=== PATIENT | female | born 1980 | race Caucasian/White ===

== ENCOUNTER 2021-01-25 09:31 | Outpatient (CLI) | payer OTHER, SELFPAY ==
--- NOTE | 2021-01-25 10:21 | ECHO_ITS ---
Patient Info Name: Sarahi Leon Age: 40 years : 1980 Gender: Female Ht: 64 in Wt: 140 lbs BSA: 1.70 m2 HR: 77 bpm BP: 130 / 90 mmHg Heart Rhythm: Sinus Rhythm Exam Date: 01/25/2021 10:44 AM Exam Location: [facility] Pulmonary Patient Status: Outpatient Admit Date: 01/25/2021 Staff Ordering Physician: Clair Ortiz Guard Immigration: Noelle Stern RDCS Attending Provider: Clair Ortiz Exam Type: CA echo doppler color flow Study Info Indications - CONGENITAL INSUFFICIENCY OF AORTIC VALVE Complete two-dimensional, color flow and Doppler transthoracic echocardiogram is performed. Summary 1. Complete two-dimensional, color flow and Doppler transthoracic echocardiogram is performed. 2. Left ventricular chamber dimension is normal. 3. Left ventricular systolic function is normal, estimated at 60-65%. 4. The left ventricular diastolic function is grade I diastolic dysfunction. 5. E/e' 7 is not elevated. 6. The aortic valve is bicuspid. 7. No pulmonary hypertension, estimated pulmonary arterial systolic pressure is 26 mmHg. Left Ventricle E/e' 7 is not elevated. Left ventricular chamber dimension is normal. Left ventricular systolic function is normal, estimated at 60-65%. The left ventricular diastolic function is grade I diastolic dysfunction. Right Ventricle Right ventricular chamber dimension is normal. Right ventricular systolic function is normal. Left Atria Left atrial chamber dimension is normal. Right Atria Right atrial chamber dimension is normal. Aortic Valve The aortic valve is bicuspid. There is no aortic valve stenosis. There is no aortic valve regurgitation. Pulmonic Valve There is no pulmonic regurgitation. Mitral Valve There is no mitral valve stenosis. There is no mitral valve regurgitation. Tricuspid Valve There is no tricuspid valve regurgitation. No pulmonary hypertension, estimated pulmonary arterial systolic pressure is 26 mmHg. Pericardium/Pleural There is no pericardial effusion. Inferior Vena Cava Normal inferior vena cava with >50% collapse upon inspiration consistent with normal right atrial pressure, 5 mmHg. Aorta The aortic root size at the sinus of Valsalva is normal. Left Ventricular Outflow Tract Name Value Normal LVOT 2D LVOT Diameter 1.9 cm LVOT Doppler LVOT Peak Gradient 4 mmHg LVOT Mean Gradient 2 mmHg LVOT VTI 23 cm LVOT VTI/AV VTI Ratio 0.5 LVOT Stroke Volume 66 ml LVOT CO 4.7 l/min LVOT CI 2.8 l/min/m2 Pulmonic Valve Name Value Normal RVOT Doppler RVOT Peak Gradient 3 mmHg PV Doppler
== END 2021-01-25 09:32 | disposition home or self-care (01) ==
LOC: ANHCARD 09:33
PROVIDERS: PCP Internal Medicine; Visit Provider Clinical Nurse Specialist
DX: Q23.1 Congenital insufficiency of aortic valve (principal)
CPT/HCPCS: 93306

== ENCOUNTER 2021-02-15 13:15 | Outpatient (RCR) | payer OTHER, SELFPAY ==
--- NOTE | 2021-02-05 10:14 | PTOPEVAL ---
PHYSICAL THERAPY EVALUATION AND PLAN OF CARE 02-05-21 Thank you for referring Sarahi Leon to [facility], for the diagnosis of mononeuropathy. She has issues with her R upper quadrant--cervical and R UE pain. She is scheduled to be seen for therapy? 1-2 x/week for 5 weeks. Please review, sign, date and return this plan of care CATHY. I agree with and certify that the following plan of care is medically necessary. Referring Physician Date Attending Provider: LES Montez PT Outpatient Evaluation Document 02/05/21 09:00 CHAD (Rec: 02/05/21 10:14 CHAD [id number]) Past Medical History Source of Past Medical History Patient Neurological History Hx Neurological Disorders No Significant History Cardiovascular History Hx Other Cardiac Disorders Yes: to see lead trainer soon for congenital bicuspid valve Respiratory History Hx Respiratory Disorders No Significant History Gastrointestinal History Hx Gastrointestinal Disorders No Significant History Genitourinary History Hx Genitourinary Disorders No Significant History Musculoskeletal History Hx Back Pain Yes: chronic neck and low back pain Endocrine History Hx Endocrine Disorders No Significant History HEENT History Hx HEENT Disorders No Significant History Evaluation Information Problem Diagnosis mononeuropathy Onset April 2020 Subjective Information with moving into a new home, Query Text:As Reported By Patient/ increased pain; thought it Family would ease, but continued to be painful; have not had any treatment or imaging recently; in the past, has had chiropractor care for neck and low back pain; Prior Level of Function Activity Level (Last 3 Months) Occupation house cleaning, 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
--- NOTE | 2021-03-08 16:18 | PCPTNOTE ---
PHYSICAL THERAPY DISCHARGE 03-08-21 Attending Provider: Clair Ortiz, ZHAO-C Patient:Sarahi Leon Date of :1980 Ms. Leon has received 2 PT sessions, on February 05 and , for the diagnosis of neck pain. She then called and canceled her appointments, therefore she will be discharged at this time. The goals were not assessed. Thank you for referring Sarahi to [facility]. Please review, sign, date and return this discharge summary CATHY. I have been updated about the patient's current status and I agree with discharge from the above service at this time. Referring Physician Date
== END 2021-03-11 09:30 | disposition home or self-care (01) ==
LOC: ANHPT 13:15
PROVIDERS: PCP Internal Medicine; Visit Provider Clinical Nurse Specialist
DX: G58.9 Mononeuropathy, unspecified (principal); R07.89 Other chest pain
CPT/HCPCS: 97110; 97140; 97162